=== PATIENT | female | born 1960 | race Caucasian/White ===

== ENCOUNTER 2019-01-03 05:48 | Day surgery (SDC) | payer BC ==
[2018-12-31 11:50] LABS: Absolute Lymphocytes (CBC) 1.9 K/uL (0.7-4.9); Absolute Monocytes 0.3 K/uL (0.1-1.3); Absolute Neutrophil 3.4 K/uL (1.8-8.0); Basophils % 0.5 % (0-1.3); Eosinophils % 0.1 % (0-4.4); Hematocrit 41.8 % (36.0-45.0); Lymphocytes % 33.4 % (15.3-44.8); MPV 9.9 fL (7.6-11.3); Monocytes % 5.9 % (3.3-12.3); RBC Red Blood Cell Count 4.69 M/uL (3.86-4.86)
[2018-12-31 11:51] LABS: Urine Appearance CLEAR; Urine Bilirubin NEGATIVE (NEG); Urine Blood NEGATIVE (NEG); Urine Color YELLOW; Urine Glucose NEGATIVE (NEG); Urine Protein NEGATIVE (NEG); Urine Specific Gravity <=1.005 (1.005-1.030); Urine Urobilinogen 0.2 mg/dL (0.2-1.0)
[2018-12-31 11:55] LABS: Urine Microscopic Reflex NO UMIC
[2018-12-31 12:05] LABS: BUN Blood Urea Nitrogen 7 mg/dL (7-18); Bicarbonate 32 mmol/L (21-32); Glucose Level 99 mg/dL (74-106); Potassium 3.9 mmol/L (3.5-5.1); Sodium Level 140 mmol/L (136-145)
[2018-12-31 12:19] LABS: Protime INR 0.95
[2019-01-03] MEDS ORDERED: CEFAZOLIN/SWI 2gm 2 GM/20 ML SYR ONE (06:17)
[2019-01-03] MEDS ORDERED: Ringers Lactate 1,000 ML IV ONE ×3 (06:17→19:08)
[2019-01-03] MEDS ORDERED: SCOPOLAMINE HYDROBROMIDE PATCH TD ONE (06:17)
[2019-01-03] MEDS ORDERED: NA CHLORIDE 0.9% 100 ML IV ONE (07:08)
[2019-01-03] MEDS ORDERED: PROPOFOL 200 MG/20 ML VIAL IV ONE (07:11)
[2019-01-03] MEDS ORDERED: FENTANYL CITR 100 MCG/2 ML ONE (07:11)
[2019-01-03] MEDS ORDERED: ROCURONIUM 50 MG/5 ML VIAL IV ONE ×2 (07:12→09:20)
[2019-01-03] MEDS ORDERED: MIDAZOLAM HCL 2 MG/2 ML INJ ONE (07:13)
[2019-01-03] MEDS ORDERED: LIDOCAINE 2% MPF 5 ML VIAL ONE (07:13)
[2019-01-03] MEDS ORDERED: ONDANSETRON 4 MG/2 ML VIAL ONE (07:13)
[2019-01-03] MEDS ORDERED: EPHEDRINE SULF 50 MG/ML VIAL ONE (08:00)
[2019-01-03] MEDS: Ringers Lactate 1,000 ML IV ONE ×2 (08:06→08:25)
[2019-01-03] MEDS: VASOPRESSIN 20 UNIT/ML VIAL ONE ×2 (08:07→10:30)
[2019-01-03] MEDS ORDERED: NEOSTIGMINE 1 MG/ML -10 ML VIAL ONE (11:27)
[2019-01-03] MEDS ORDERED: GLYCOPYRROLATE 0.2 MG/ML SYR ONE (11:27)
[2019-01-03] MEDS ORDERED: KETOROLAC 30 MG/ML INJ ONE (11:29)
[2019-01-03] MEDS: HYDROMORPHONE HCL 2 MG/ML inj ONE ×5 (11:47→12:40)
[2019-01-03] MEDS: FENTANYL CITR 100 MCG/2 ML ONE ×4 (12:05→12:20)
[2019-01-03] MEDS ORDERED: MEPERIDINE HCL 50 MG/ML AMP IM PRN (12:15)
[2019-01-03] MEDS ORDERED: IBUPROFEN 400 MG TAB PO PRN (12:17)
[2019-01-03] MEDS ORDERED: PROMETHAZINE 25 MG TABLET PO PRN (12:18)
[2019-01-03] MEDS ORDERED: PROMETHAZINE 25 MG/ML VIAL IV PRN (12:18)
[2019-01-03] MEDS: HYDROMORPHONE HCL 1 MG/ML INJ ONE ×2 (12:49→12:58)
[2019-01-03] MEDS ORDERED: MEPERIDINE HCL 25 MG/0.5 ML ONE (13:17)
[2019-01-03] MEDS ORDERED: DIPHENHYDRAMINE 25 MG TAB/CAP ONE (13:51)
[2019-01-03] MEDS ORDERED: DIPHENHYDRAMINE 25 MG TAB/CAP PO ONE (13:53)
[2019-01-03] MEDS ORDERED: IBUPROFEN 200 MG TAB PO PRN (14:00)
[2019-01-03] MEDS: CEFAZOLIN/SWI 1gm 1 GM/10 ML SYR ONE ×2 (15:00→23:00)
[2019-01-03] MEDS ORDERED: CEFAZOLIN/SWI 1gm 1 GM/10 ML SYR IV SCH (15:00)
[2019-01-03] MEDS: HYDROCODONE/APAP 5/325 MG TAB PO PRN ×2 (16:02→23:56)
[2019-01-04] MEDS ORDERED: Ringers Lactate 1,000 ML IV ONE (03:06)
[2019-01-04] MEDS: HYDROCODONE/APAP 5/325 MG TAB PO PRN ×2 (07:12→12:56)
[2019-01-04 12:11] LABS: Absolute Lymphocytes (CBC) 1.4 K/uL (0.7-4.9); Absolute Monocytes 0.5 K/uL (0.1-1.3); Absolute Neutrophil 3.9 K/uL (1.8-8.0); Basophils % 0.2 % (0-1.3); Eosinophils % 0.1 % (0-4.4); Hematocrit 33.3 % (36.0-45.0); Lymphocytes % 24.5 % (15.3-44.8); MPV 10.1 fL (7.6-11.3); Monocytes % 8.4 % (3.3-12.3); RBC Red Blood Cell Count 3.69 M/uL (3.86-4.86)
--- NOTE | 2019-01-05 07:08 | OP ---
Date of Procedure: 01/03/2019 Surgeon: Joanna Thapa MD Critical Care Nurse Specialist: Ana Morrow. Preoperative Diagnoses: Incomplete uterovaginal prolapse stage III, anterior wall prolapse, stress u rinary incontinence, perineal body defect. Postoperative Diagnoses: Incomplete uterovaginal prolapse, stress urinary incontinence, distal poste rior wall defect, and perineocele. Procedures Performed: 1.Total laparoscopic hysterectomy, bilateral salpingo-oophorectomy. 2.Uterosacral ligament suspension colpopexy. 3.Posterior wall distal site specific repair and perineorrhaphy, mid urethral sling (TVTO) and cysto scopy. Ebl: Minimal. Complications: No complications. Drains: Desir catheter and vaginal packing. Condition: Stable. POP-Q +1, +2, 0, 5; moderate 7, -1, -2, -1. The +2 was demonstrable only with placement of the Allis clamp and with maximal traction, otherwise, the lowest point of the anterior wall appeared to be abo ut 0 and AA also appeared to be 0. The patient was originally consented for vaginal repair with biologic Xenform graft augmented anterio r apical repair with sling and posterior repair as needed. However, given the recent change and avai lability of this product, we discussed the alternatives of vaginal surgery without any graft augmenta tion versus abdominal repair with supracervical hysterectomy and sacral colpopexy versus uterosacral ligament suspension bilaterally as feasible as well as vaginal repair with sacrospinous fixation. Al l these were discussed with the patient. The patient was then consented for uterosacral ligament charla pension after hysterectomy and BSO. She had initial reservation for hysterectomy due to the fact delores t there was nothing abnormal going on with her uterus, however, given the feasibility for a good colp opexy in this patient, I recommended this and she was consented. Description Of Procedure: After informed consent was verified, the patient was taken back to OR. dariana was given 2 g of Ancef. She was placed in a supine fashion on the operating table. After general anesthesia was given, she was placed in a dorsal lithotomy position. The patient had back surgery in the lumbosacral spine with some metal in it, making sure there was adequate padding between the oper ating table and the patient, however, without this impairing my ability to perform the procedure. General anesthesia was given with intubation, the patient was placed in dorsal lithotomy using Emile stirrups. Both arms were tucked by the side. Abdomen, vulva, vagina, and perineum widely were prepp ed and draped in a sterile fashion for both abdominal and vaginal procedures. Speculum was placed to expose the cervix. Anterior lip grasped with 2 Allis clamps. Medium VCare wa s inserted into the uterus and fixed in place. Desir was placed, attached to a drainage bag of LR an d emptied 300 for retrograde filling. This area was draped. A 1 cm infraumbilical incision was made with a scalpel using the open laparoscopy technique. Fascia was incised, tagged. Shadia introduced into the peritoneum after was bluntly entered with S retracto rs. Site of entry was checked unremarkable. The patient was placed in significant Trendelenburg pos ition. In the right lateral paraspinous area next to the L5-S1 vertebrae, there were metal screws th at were visible just retroperitoneally all the way and these were noted at the area where the L5-S1 w ere identified. Then visualize all the anatomy of this patient, both right ureter, right common yadi c. The branches of the iliac the external and internal were identified. Then, the ureter course was completed traced from the pelvic brim to the ureteric tunnel and there was no evidence of any degene rative anatomical distortion. The uterosacral ligaments attachments and the path was traced at the d istal part of the course of the uterosacral ligament where it would be closest to the ureter. Perito neum was picked up between these 2 structures. An incision made with help of laparoscopic scissors a bout 5 cm proximally palpating the ischial spine, so that this would drop the uterosacral ligament mo re medially and decrease the chance of kinking while I stitched the uterosacral to the vaginal apex. Once this was done, similar dissection was performed opposite side after identifying the course of th e ureter and the distal uterosacral ligaments paths were identified. Once these were all done, then I went ahead and opened the peritoneum between these 2 structures for the same purpose. Hysterectomy was performed in the usual fashion using EnSeal device, round ligament, uteroovarian lig ament, mesosalpinx tube, broad ligament were all taken down with the help of the EnSeal. Vessels wer e skeletonized, anterior peritoneum opened with laparoscopic scissors and the bladder delineated very clearly and dissected inferiorly about 4 cm below the level of the area of the colpotomy. I exposed the anterior vaginal wall dissecting the bladder away. Once this was done adequately in the midline and on both sides paying attention to the area of insertion of the ureter into the bladder without d isrupting the bladder pillars too much. This dissection was performed for good exposure of the anter ior vaginal wall, so this could be sutured while performing the colpopexy. Posteriorly, the peritoneum was opened up so that I could cut on the posterior perimeter of the VCare cup. After both vessels were isolated, they were taken down with the help of the EnSeal device as well as bipolar basket tip and whatever was left of the cardinals were also taken down. Then, the vesicovagi nal vaginal space was entered in the midline in order to perform the dissection, so there was clear d emarcation of the anterior cup as well, so circumferential colpotomy performed with a monopolar hook blade. The specimen detached and retrieved through the vagina. Thorough irrigation and suction were performed. Two-layer closure was performed with 2 simple angle stitches tied lateral to the angle t hen 3 [id number] in the middle just including the vaginal epithelium, sub-epithelium, and the c onnective tissue without including the anterior vaginal wall and posterior vaginal wall and the secon d layer was to be done with the PDS including the uterosacral suspension. Starting on the left side, the 0 PDS suture was taken on a CT-1 needle and sutured about 2 cm inferio r to the ischial spine. The area of the distal uterosacral was picked up and plicated with 3 stitche s down to the most distal part and this last distal part of the stitch was passed through the posteri or rectovaginal fascia. The stitch was then taken imbricating the suture line and picking up the ant erior vaginal wall, the precervical fascia. Once this was done, the suture was pulled out through th e left lateral port and on the right side similar sutures were taken all the way 3 stitches on the ut erosacral ligament then posterior vaginal wall of the rectovaginal septum and anterior precervical fa scia. This stitch was held through the right lower quadrant 5 mm port. Then, a midline suture was p laced to prevent any apical enterocele. Both the rectovaginal septum, the back, and the precervical fascia on the midline were plicated by imbricating the previous vaginal cuff closure with 0 PDS in a kjinda-cj-lxiiy fashion. This was then tied down inverting the first layer closure and getting a goo d attachment of the anterior posterior fascial mccoy in order to prevent an enterocele. Then, the kilgore tures of the uterosacral were also tied on each side making sure that there was good apposition of an terior posterior mccoy. There was not excessive tension on the apex on both sides. This was checked vaginally as well as just on visual exam through the laparoscope and there was no evidence of any el ectrical, mechanical, or thermal injury to the ureters. There was good peristalsis on both sides. T hen, tubes and ovaries were removed with the EnSeal device and retrieved. Thorough irrigation and kilgore ction were performed and the appendix appeared to be unremarkable as well. After finishing the entir e procedure, the cystoscopy was performed after bring out the Desir catheter. Both ureteric orifices had strong jets of urine from them promptly, so catheter was replaced, clamped with a Carolina, change gloves, and close the incisions after removing all the trocars under direct vision. Fascia closed wi th 0 Vicryl in gaxkmt-lm-sfpau fashion in the midline at the umbilicus and simple 0 Vicryl stitch at the suprapubic site. All the skin incisions closed with interrupted 4-0 Vicryl sutures and dressings placed. Midurethral sling was performed, vaginal epithelium was identified by identifying the ureterovesical junction where the Desir bulb was located then the midurethral area was injected with dilute vasopres sin 20 units mixed with 50 cc of normal saline and 10 units was injected in the midline and on both s ides. Skin markings were replaced according to the guidelines of the TVTO exit points 2 cm lateral a nd 1 cm superior to the horizontal line dropped at the level of the external meatus in respect to the groin fold. Then midline 1 cm incision was made with a scalpel through the vaginal epithelium, sub- epithelium into the suburethral space. This dissection was carried with the patient in high lithotom y to the ipsilateral side hugging the inferior pubic ramus at a 45 degree angle to the vertical and h orizontal planes, tips pointing towards the ipsilateral shoulder. Obturator membrane was perforated and the tract was widened on the right side than on the left side similar dissection was performed. Wing guide was placed, spike was passed in the usual fashion on both sides and after the plastic dila tors were cut tensioning was done with Carolina's on the sheath in the mesh. The Metzenbaum scissors we re used for tensioning in the midline. The plastic sheaths were then pulled out after appropriate te nsion was obtained. After the Metzenbaum were removed, visual inspection of the sling was performed and it was in a satisfactory position. Thorough irrigation and suction were performed and then the v aginal epithelium closed with the help of 3-0 Vicryl in a continuous running locked fashion. The ski n incisions closed with Dermabond. Posterior repair was done. Triangular skin incision was placed on the perineocele, starting at the l evel of the hymenal tags injected with dilute vasopressin 20 units in the posterior wall at the level of the perineum and the distal posterior wall about 3 cm. Then, after a emerald-shaped incision was made on the perineum, the skin was excised, both edges were freshened, all the scar tissue in the mi dline was removed. This was area of defect and scar likely from her deliveries. The perineal body s tructures on the lateral aspect were identified and Allis clamps placed on each side. The levators w ere also exposed after the posterior incision was made on top of the rectovaginal septum after the va ginal epithelium and sub-epithelium were raised. All the edges were nicely trimmed. Dissection was performed laterally. There was a distal defect between the rectovaginal septum and the perineal body . There was nothing to be attached, so once the rectovaginal septum the distal part was reinforced w ith the help of 2 interrupted 2-0 Vicryl sutures. Then, the perineal body was rebuilt with four 2-0 Vicryl sutures from side to side, bringing together the deep and superficial transverse perinei. The rest of the perineal body on the perineum. Once this was reconstructed, the top septum was sutured to this with another in a cxmisb-tr-stllm 2-0 Vicryl suture. The vaginal epithelial edges were sligh tly trimmed and then the vaginal epithelium was closed with the help of a 2-0 Vicryl in a continuous running locked fashion until the hymen and tied. 3-0 Vicryl was taken in a subcutaneous and subcutic ular fashion. This incision was closed and tied inside. Rectal exam was performed during the placem ent of the sutures, making sure that this was thick enough and once this was ensured it was also chec ked for any foreign bodies that entered through the rectal mucosa and there were none. After the repair was done, cystoscopy was performed and no evidence of any trauma to the bladder on t he lateral aspects after the sling. Desir was replaced after draining the bladder. Vaginal packing was placed. Instrument, needle, and sponge counts were done and were correct at the end of the case. The patient tolerated the procedure well. She was to be placed on the floor for observation overni ght and then voiding trials in the morning. Ancef 1 g q.8 two doses were given additionally. LIZBETH/FAZAL Voice ID: [id number] Report ID: [id number]
== END 2019-01-04 14:00 | disposition home or self-care (01) ==
LOC: OR 05:48 → 2ND-WC 11:50 → OR 01-04 14:00
PROVIDERS: ATTEND Obstetrics & Gynecology
PROC: 0UT24ZZ Resection of Bilateral Ovaries, Percutaneous Endoscopic Approach (ICD-10-PCS; 2019-01-03)
PROC: 0UT74ZZ Resection of Bilateral Fallopian Tubes, Percutaneous Endoscopic Approach (ICD-10-PCS; 2019-01-03)
PROC: 0USG7ZZ Reposition Vagina, Via Natural or Artificial Opening (ICD-10-PCS; 2019-01-03)
PROC: 0TSD4ZZ Reposition Urethra, Percutaneous Endoscopic Approach (ICD-10-PCS; 2019-01-03)
PROC: 0JQC0ZZ Repair Pelvic Region Subcutaneous Tissue and Fascia, Open Approach (ICD-10-PCS; 2019-01-03)
PROC: 0WQN0ZZ Repair Female Perineum, Open Approach (ICD-10-PCS; 2019-01-03)
PROC: 0UT94ZZ Resection of Uterus, Percutaneous Endoscopic Approach (ICD-10-PCS; principal; 2019-01-03 07:30)
DX: N87.9 Dysplasia of cervix uteri, unspecified (principal); N84.0 Polyp of corpus uteri; D25.9 Leiomyoma of uterus, unspecified; N83.8 Other noninflammatory disorders of ovary, fallopian tube and broad ligament; N73.6 Female pelvic peritoneal adhesions (postinfective); N81.2 Incomplete uterovaginal prolapse; N39.3 Stress incontinence (female) (male); N81.81 Perineocele; N95.2 Postmenopausal atrophic vaginitis; I10 Essential (primary) hypertension; E78.00 Pure hypercholesterolemia, unspecified; Z79.899 Other long term (current) drug therapy
CPT/HCPCS: 36415; 80048; 81003; 85025; 85610; 85730; 86850; 86900; 86901; 88305; J0690; J1170; J2175; J2250; J2405; J2704; J2710; J3010

== ENCOUNTER 2019-03-27 07:20 | Day surgery (SDC) | payer BC ==
[2019-03-27] MEDS ORDERED: Ringers Lactate 0 ML IV ONE (07:41)
== END 2019-03-27 08:30 | disposition home or self-care (01) ==
LOC: OR 07:20
PROVIDERS: ATTEND Surgery
DX: R10.9 Unspecified abdominal pain (principal); Z53.8 Procedure and treatment not carried out for other reasons; I10 Essential (primary) hypertension; E78.00 Pure hypercholesterolemia, unspecified

== ENCOUNTER → 2019-04-22 | Day surgery (SDC) | payer BC ==
[~2019-04-22] MED LIST: FENTANYL CITR 100 MCG/2 ML ONE; LIDOCAINE 1% MPF 5 ML VIAL ONE; PROPOFOL 200 MG/20 ML VIAL IV ONE; Ringers Lactate 1,000 ML IV ONE
--- NOTE | 2019-04-22 08:44 | ENDO RPT ---
[address], [address] COLONOSCOPY PROCEDURE REPORT EXAM DATE: 04/22/2019 PATIENT NAME: Yu Jamil MR #: [id number] BIRTHDATE: 1960 ATTENDING: Doug Torres DR STATUS: outpatient OCCUPATIONAL THERAPY INSTRUCTOR: Mary Resendez RN and Fabian Gudino [facility] INDICATIONS: The patient is a 58 yr old Female here for a colonoscopy due to abdominal pain PROCEDURE PERFORMED: Colonoscopy with biopsy MEDICATIONS: Per Anesthesia. ESTIMATED BLOOD LOSS: None CONSENT: The patient understands the risks and benefits of the procedure and understands that these risks include, but are not limited to: sedation, allergic reaction, infection, perforation and/or bleeding. Alternative means of evaluation and treatment include, among others: physical exam, x-rays, and/or surgical intervention. The patient elects to proceed with this endoscopic procedure. DESCRIPTION OF PROCEDURE: During intra-op preparation period all mechanical medical equipment was checked for proper function. Hand hygiene and appropriate measures for infection prevention was taken. Procedure, possible complications, alternatives including, but not limited to possibility of bleeding, perforation, tear, infection, sepsis, need for surgery, need for blood transfusion, were explained to the patient. After the risks, benefits and alternatives of the procedure were thoroughly explained, Informed consent was verified, confirmed and timeout was successfully executed by the treatment team. The patient was placed in the left lateral position. A digital rectal exam was performed and revealed no abnormalities of the rectum. After appropriate level of anesthesia, the scope was passed. The EC-[id number] ([id number]) endoscope was introduced through the anus and advanced to the cecum, which was identified by both the appendix and ileocecal valve. The quality of the prep was good. The instrument was then slowly withdrawn as the colon was fully examined. Scope withdrawal time was 7 minutes. COLON FINDINGS: A normal appearing cecum, ileocecal valve, and appendiceal orifice were identified. the ascending, transverse, descending, sigmoid colon, and rectum appeared unremarkable. A biopsy was performed. Retroflexed views revealed no abnormalities. The scope was then completely withdrawn from the patient and the procedure terminated. ADVERSE EVENTS: There were no complications. IMPRESSIONS: A normal appearing cecum, ileocecal valve, and appendiceal orifice were identified. the ascending, transverse, descending, sigmoid colon, and rectum appeared unremarkable; biopsy was performed RECOMMENDATIONS: 1. await biopsy results 2. avoid NSAIDS for 2 weeks 3. fiber rich diet 4. follow-up: office 2 week(s) 5. yearly hemoccult starting in 4 years RECALL: Return in 10 year(s) for Colonoscopy, pending biopsy results. Pending Biopsy Results, Stool FIT test in [address] eSigned: Doug Torres DR 04/22/2019 8:44 AM cc: CPT CODES: ICD9 CODES: PATIENT NAME: Yu Jamil MR#: [id number]
[2019-04-22 09:02] VITALS: TEMP 97.3; O2SAT 100
[2019-04-22 09:20] VITALS: BP 114/90
== END | disposition home or self-care (01) ==
LOC: OR 06:42
PROVIDERS: ATTEND Surgery
PROC: 0DBL8ZX Excision of Transverse Colon, Via Natural or Artificial Opening Endoscopic, Diagnostic (ICD-10-PCS; principal; 2019-04-22 08:30)
DX: R10.9 Unspecified abdominal pain (principal); I10 Essential (primary) hypertension; E78.00 Pure hypercholesterolemia, unspecified; Z91.013 Allergy to seafood; Z83.71 Family history of colonic polyps; Z83.3 Family history of diabetes mellitus; Z82.49 Family history of ischemic heart disease and other diseases of the circulatory system
CPT/HCPCS: 88305; 45380; J2704; J3010